=== PATIENT | male | born 1975 | race Caucasian/White ===

== ENCOUNTER → 2017-04-22 13:29 | Outpatient (POV) | payer BC, SELFPAY ==
[2017-04-22 15:22] LABS: Basophils # 0.1 K/mm3 (0-0.2); Basophils % 0.8 % (0.1-2.0); Eosinophils # 0.1 K/mm3 (0.0-0.4); Eosinophils % 1.6 % (0.1-12.0); Hematocrit 52.6 % (42.0-52.0); Hemoglobin 17.6 g/dL (14.1-18.0); Lymphocytes # 2.2 K/mm3 (0.7-4.5); Lymphocytes % 36.4 K/mm3 (10-50); Mean Corpuscular HGB Conc 33.5 g/dL (31.8-35.4); Mean Corpuscular Hemoglobin 30.4 pg (27.0-31.2); Mean Corpuscular Volume 90.6 fl (80-94); Mean Platelet Volume 7.1 fl (7.4-10.4); Monocytes # 0.3 K/mm3 (0.1-1.0); Monocytes % 5.1 % (1.7-9.3); Neutrophils # 3.4 K/mm3 (1.8-7.8); Neutrophils % 56.1 % (37.0-80.0); Platelet Count 258 K/mm3 (142-424); Red Blood Count 5.81 M/mm3 (4.60-6.20); Red Cell Distribution Width 12.5 % (11.5-17.5)
[2017-04-22 15:27] LABS: Alanine Aminotransferase 113 U/L (12-78); Albumin Level 4.6 gm/dL (3.4-5.0); Albumin/Globulin Ratio 1.2 (1.1-1.8); Alkaline Phosphatase 85 U/L (46-116); Anion Gap 13.7 mEq/L (5-15); Bilirubin,Total 0.4 mg/dL (0.2-1.0); Blood Urea Nitrogen 19 mg/dL (7-18); Calcium 9.1 mg/dL (8.5-10.1); Carbon Dioxide 27 mmol/L (21.0-32.0); Chloride 98 mmol/L (98-107); Creatinine,Serum 0.92 mg/dL (0.70-1.30); Estimated Glomerular Filt Rate 90 ml/min (>60); Ferritin 327 ng/mL (8-388); GFR (African American) 109 ML/MIN (>60); Globulin 3.8 gm/dl (1.3-3.2); Sodium 135 mmol/L (136-145); Total Protein,Serum 8.4 gm/dL (6.4-8.2)
[2017-04-22 15:29] LABS: Potassium 3.7 mmoL/L (3.5-5.1)
[2017-04-22 15:39] LABS: Aspartate Amino Transferase 41 U/L (15-37)
[2017-04-22 15:40] LABS: Glucose 150 mg/dL (74-106)
[2017-04-22 16:10] LABS: INR 0.93 (0.9-1.1)
[2017-04-24 06:16] LABS: Hep A Ab, IgM Negative (Negative); Hepatitis B Core Antibody IgM Negative (Negative); Hepatitis B Surface Antigen Negative (Negative)
[2017-04-24 07:19] LABS: Iron 99 ug/dL (38-169); UIBC 247 ug/dL (111-343)
[2017-04-24 08:24] LABS: Alpha-1-Antitrypsin 82 mg/dL (90-200); Ceruloplasmin 35.1 mg/dL (16.0-31.0); Immunoglobulin A, Qn 268 mg/dL (90-386); Immunoglobulin G, Qn 802 mg/dL (700-1600)
[2017-04-24 15:22] LABS: Angiotensin Converting Enzyme 19 U/L (14-82)
[2017-04-25 07:17] LABS: ALT (SGPT) P5P 97 IU/L (0-55); Alpha 2-Macroglobulins, Qn 339 mg/dL (110-276); Apolipoprotein A-1 140 mg/dL (101-178); Bilirubin, Total 0.2 mg/dL (0.0-1.2); Fibrosis Score 0.27 (0.00-0.21); Fibrosis Stage F0-F1 (.); GGT 50 IU/L (0-65); Haptoglobin 165 mg/dL (34-200); Necroinflammat Activity Grade A2-Moderate activity (.); Necroinflammat Activity Score 0.54 (0.00-0.17)
[2017-04-25 11:59] LABS: Actin (Smooth Muscle) Antibody 16 Units (0-19); Antinuclear Antibodies, IFA Negative (.); Hepatitis C Antibody <0.1 s/co ratio (0.0-0.9); Immunoglobulin M, Qn 84 mg/dL (20-172); Iron Saturation 29 % (15-55); Liver-Kidney Microsomal Ab <1.0 Units (0.0-20.0); Mitochondrial (M2) Antibody <20.0 Units (0.0-20.0)
[2017-04-26 19:22] LABS: Phenotype (PI) MZ (.)
== END ==
PROVIDERS: Family Provider Family Medicine; PCP Family Medicine; Visit Provider Nurse Practitioner Acute Care
DX: R94.5 Abnormal results of liver function studies (principal)
CPT/HCPCS: 36415; 80053; 80074; 82104; 82164; 82390; 82728; 82784; 83550; 85025; 85610; 86038; 86255; 86256; 86376

== ENCOUNTER → 2017-04-25 08:39 | Outpatient (CLI) | payer BC, SELFPAY ==
--- NOTE | 2017-04-25 08:43 | US_ITS ---
US abdomen limited: HISTORY: ITS.REASON: ABNORMAL LIVER FUNCTIONS ORDERING PHYSICIAN: Dora Lee PATIENT AGE: 42 years COMPARISON: None FINDINGS: PANCREAS: Unremarkable. No obvious mass or abnormal fluid collection. No ductal dilatation LIVER: There is increased echogenicity of the liver with decreased through transmission of sound consistent with fatty liver. There is appropriate direction of blood flow within the portal vein. No focal liver lesions demonstrated. Homogeneous echogenicity. No intrahepatic biliary ductal dilatation evident RIGHT KIDNEY: Unremarkable. Normal size and echogenicity. No hydronephrosis GALLBLADDER: No gallstones, gallbladder wall thickening, pericholecystic fluid, or biliary dilatation. Common bile duct is 3 mm IMPRESSION: Fatty liver. Otherwise negative right upper quadrant ultrasound
[2017-04-26 19:24] LABS: Deamidated Gliadin Abs, IgA 5 units (0-19); Deamidated Gliadin Abs, IgG 3 units (0-19); Tissue Transglutaminase IgA Ab <2 U/mL (0-3); Tissue Transglutaminase IgG Ab <2 U/mL (0-5)
[2017-04-26 19:25] LABS: Endomysial IgA Antibody Negative (Negative)
[2017-04-27 18:36] LABS: Reticulin IgA Antibody Negative titer (Neg:<1:2.5)
== END ==
PROVIDERS: Family Provider Family Medicine; PCP Family Medicine; Visit Provider Nurse Practitioner Acute Care
DX: R94.5 Abnormal results of liver function studies (principal)
CPT/HCPCS: 36415; 76705; 83516; 86255; 86256

== ENCOUNTER → 2017-05-27 13:01 | Outpatient (POV) | payer BC, SELFPAY | PROVIDERS: Visit Provider Nurse Practitioner Acute Care | DX: Z00.00 Encounter for general adult medical examination without abnormal findings (principal) ==

== ENCOUNTER → 2017-07-29 09:43 | Outpatient (POV) | payer BC, SELFPAY | PROVIDERS: Family Provider Family Medicine; Visit Provider Nurse Practitioner Acute Care | DX: Z00.00 Encounter for general adult medical examination without abnormal findings (principal) ==

== ENCOUNTER → 2019-02-26 16:35 | Outpatient (CLI) | payer BC, SELFPAY ==
--- NOTE | 2019-02-26 | XR_ITS ---
PROCEDURE: XR SHOULDER RT MIN 2V CLINICAL INDICATION: SHOULDER PAIN COMPARISON: No exams were available for comparison FINDINGS: No fracture, dislocation, lytic change, or blastic change evident. No significant degenerative change IMPRESSION: Unremarkable right shoulder. Dictated by: Bashir Corrigan MD 02/26/2019 17:47 Electronically signed by Bashir Corrigan MD in [place] 02/26/2019 17:47
== END ==
PROVIDERS: PCP Nurse Practitioner Family; Visit Provider Nurse Practitioner Family
DX: M25.511 Pain in right shoulder (principal)
CPT/HCPCS: 73030

== ENCOUNTER → 2020-04-18 09:58 | Outpatient (CLI) | payer BC, SELFPAY | PROVIDERS: PCP Family Medicine; Visit Provider Family Medicine | DX: R01.2 Other cardiac sounds (principal) | CPT/HCPCS: 93306 ==

== ENCOUNTER 2020-10-18 21:11 | Observation (INO) | payer BC, OTHER, SELFPAY ==
[2020-10-18] VITALS (7 sets, daily range): BP systolic 125–210; BP diastolic 74–111; PULSE 59–72; RESP 18–20; TEMP 36.7; O2SAT 93–99; BMI 31.9
--- NOTE | 2020-10-18 | ECG_ITS ---
APPROVED REPORT Exam: Resting ECG HR:55 bpm ECG Measurements Heart Rate 55 AXES TN 150 P 41 QRSd 98 QRS 11 QT 390 T 18 QTc 373 Conclusion Sinus bradycardia Otherwise normal ECG Electronically signed by : Maurice Ortiz MD 10/19/2020 17:43:30
--- NOTE | 2020-10-18 21:28 | PC.NURSE ---
walked back with patient, holding his arm. pt ambulates without difficulty. 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 house notified.
--- NOTE | 2020-10-18 21:41 | XR_ITS ---
PROCEDURE INFORMATION: Exam: XR Chest Exam date and time: 10/18/2020 9:41 PM Age: 45 years old Clinical indication: Left-sided; Patient HX: Left sided chest pain for 36 hrs, no SX, nonsmoker; Additional info: Cp TECHNIQUE: Imaging protocol: XR of the chest. Views: 2 views. COMPARISON: CR XR SHOULDER RT MIN 2V 02/26/2019 4:42 PM FINDINGS: Lungs: Atelectatic changes noted within both lung bases. Pleural spaces: There is no evidence of pneumothorax. There are no pleural effusions present. Heart/Mediastinum: Unremarkable. No cardiomegaly. Bones/joints: Unremarkable. IMPRESSION: Atelectatic changes noted within both lung bases.
[2020-10-18 21:46] LABS: Coronavirus 19, PCR Not Detected (NotDetected); Influenza A, PCR Not Detected (NotDetected); Influenza B, PCR Not Detected (NotDetected)
--- NOTE | 2020-10-18 21:48 | PC.NURSE ---
warehouse receiving clerk at bedside. pt continues to refuse to leave facility. attempts to remind policy to patient's and she stated she was fully aware of the policy but wouldn't be leaving.house continues to talk to . nitro placed to left anterior chest wall. pt received aspirin at home -243 mg-, 1 additional 81mg given. pt tolerated well
[2020-10-18 21:49] LABS: Basophils # 0.1 K/mm3 (0-0.2); Eosinophils # 0.1 K/mm3 (0.0-0.4); Hematocrit 47.8 % (42.0-52.0); Hemoglobin 15.9 g/dL (14.1-18.0); Lymphocytes # 2.7 K/mm3 (0.7-4.5); Lymphocytes % 42.3 % (10-50); Mean Corpuscular HGB Conc 33.2 g/dL (31.8-35.4); Mean Corpuscular Hemoglobin 30.7 pg (27.0-31.2); Mean Corpuscular Volume 92.4 fl (80-94); Mean Platelet Volume 7.9 fl (7.4-10.4); Monocytes # 0.3 K/mm3 (0.1-1.0); Monocytes % 4.6 % (1.7-9.3); Neutrophils # 3.2 K/mm3 (1.8-7.8); Neutrophils % 50.1 % (37.0-80.0); Platelet Count 244 K/mm3 (142-424); Red Blood Count 5.17 M/mm3 (4.60-6.20); Red Cell Distribution Width 13.3 % (11.5-17.5); White Blood Count 6.4 K/mm3 (4.8-10.8)
[2020-10-18 21:52] LABS: Chloride 102 mmol/L (98-107); Sodium 137 mmol/L (136-145)
[2020-10-18 21:55] LABS: Alanine Aminotransferase 85 U/L (12-78); Albumin Level 4.2 g/dl (3.5-5.0); Albumin/Globulin Ratio 1.4 (1.1-1.8); Alkaline Phosphatase 88 U/L (38-126); Amylase 62 U/L (30-110); Aspartate Amino Transferase 57 U/L (17-59); Bilirubin,Total 0.4 mg/dl (0.2-1.3); Blood Urea Nitrogen 14 mg/dl (9-20); Calcium 9.3 mg/dl (8.4-10.2); Carbon Dioxide 24 mmol/L (22.0-30.0); Creatinine Clearance Estimated 180 mL/min (50-200); Estimated Glomerular Filt Rate 122 ml/min (>60); GFR (African American) 148 ML/MIN (>60); Globulin 2.9 g/dL (1.3-3.2); Glucose 342 mg/dl (74-100); Lipase 106 U/L (23-300); Total Protein,Serum 7.1 g/dl (6.3-8.2)
[2020-10-18 22:02] LABS: C-Reactive Protein 1.7 mg/L (0-4)
--- NOTE | 2020-10-18 22:11 | HMH.EDCP ---
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 Diabetes mellitus complication status: with other specified complication Qualified Code(s): E11.69 - Type 2 diabetes mellitus with other specified complication HTN (hypertension) Qualifiers: Hypertension type: primary hypertension Qualified Code(s): I10 - Essential (primary) hypertension Disposition: Admitted as Observation Condition on Discharge: Good Referrals: Sushil Field MD [Primary Care Provider] - - Critical Care Critical Care Time: No Attestation: On 10/18/20, the high probability of a clinically significant, sudden or life threatening deterioration of the following system(s) required my full and direct attention, intervention and personal management. The time I documented below is in addition to time spent performing reported procedures but includes the following listed in this critical care notation. Medical Decision Making - Medical Records Medical records reviewed: Yes: I reviewed the patient's medical records. - Jesse Inquiry Pt receiving controlled substance: No Vital Signs: 10/18/20 21:12 10/18/20 21:31 10/18/20 22:01 Temperature 98.1 F Temperature Source Oral Pulse Rate 61 64 Pulse Rate [Right Brachial] 72 Respiratory Rate 19 18 18 Blood Pressure 200/111 H 185/93 H Blood Pressure [Right Arm] 210/105 H Blood Pressure Mean 131 123 Blood Pressure Mean [Right Arm] 140 Blood Pressure Source [Right Arm] Automatic Cuff Blood Pressure Position [Right Arm] Sitting 02 Sat by Pulse Oximetry 99 95 93 L Oxygen Delivery Method Room Air 10/18/20 22:15 Temperature Temperature Source Pulse Rate 66 Pulse Rate [Right Brachial] Respiratory Rate 18 Blood Pressure 159/95 H Blood Pressure [Right Arm] Blood Pressure Mean 116 Blood Pressure Mean [Right Arm] Blood Pressure Source [Right Arm] Blood Pressure Position [Right Arm] 02 Sat by Pulse Oximetry 96 Oxygen Delivery Method - Lab Data Lab results reviewed: Yes: I reviewed the patient's lab results. Lab Results 10/18/20 21:14: WBC 6.4, RBC 5.17, Hgb 15.9, Hct 47.8, MCV 92.4, MCH 30.7, MCHC 33.2, RDW 13.3, Plt Count 244, MPV 7.9, Neut % (Auto) 50.1, Lymph % (Auto) 42.3, [place] % (Auto) 4.6, Eos % (Auto) 2.0, Baso % (Auto) 1.0, Neut # (Auto) 3.2, Lymph # (Auto) 2.7, [place] # (Auto) 0.3, Eos # (Auto) 0.1, Baso # (Auto) 0.1, ESR 10 10/18/20 21:14: Sodium 137, Potassium 4.0, Chloride 102, Carbon Dioxide 24, Anion Gap 15.0, BUN 14, Creatinine 0.70, Estimated Creat Clear 180, Estimated GFR 122, Est GFR ( Amer) 148, Glucose 342 H, Calcium 9.3, Total Bilirubin 0.4, AST 57, ALT 85 H, Alkaline Phosphatase 88, C-Reactive Protein 1.7, Total Protein 7.1, Albumin 4.2, Globulin 2.9, Albumin/Globulin Ratio 1.4, Amylase 62, Lipase 106 10/18/20 21:14: Troponin I < 0.01 10/18/20 21:20: SARS-CoV-2 (PCR) Not detected, Influenza A Untype (PCR) Not detected, Influenza Type B (PCR) Not detected Result diagrams: 10/18/20 21:14 10/18/20 21:14 Orders (Tests/Meds): ED MEDICATIONS Discontinued Medications Generic Name Dose Route Start Last Admin Trade Name Zionq PRN Reason Stop Dose Admin Aspirin 81 mg 10/18/20 21:42 10/18/20 21:47 Aspirin 81mg Chewable Tablet PO 10/18/20 21:43 81 mg ONCE ONE Administration Nitroglycerin 1 gm 10/18/20 21:42 10/18/20 21:47 Nitroglycerin 1 Gm Ointment TD 10/18/20 21:43 1 gm ONCE ONE Administration ORDERS Category Date Time Status Troponin I Q3H Lab 10/19/20 01:30 Ordered Troponin I Q3H Lab 10/19/20 04:30 Ordered - Radiology Data #1 Image(s): Chest Image Reviewed: Yes I have reviewed radiologist's interpretation Preliminary Findings: Normal/NAD - ECG
--- NOTE | 2020-10-18 22:42 | PC.NURSE ---
called to check on troponin. waiting on results
[2020-10-18 22:45] LABS: Erythrocyte Sedimentation Rate 10 mm/hr (0-15)
--- NOTE | 2020-10-18 22:59 | PC.NURSE ---
Dr. Feild pagemarilee
--- NOTE | 2020-10-18 23:07 | PC.NURSE ---
on on phone with dr alvarez
[2020-10-18 23:17] LABS: Troponin I < 0.01 ng/ml (0.00-0.034)
[2020-10-19] VITALS (22 sets, daily range): BP systolic 109–149; BP diastolic 61–93; PULSE 42–76; RESP 15–20; TEMP 36.2–36.7; O2SAT 94–100; BMI 30.3; BMI 30.2
--- NOTE | 2020-10-19 | IR_ITS ---
APPROVED REPORT Patient Location: Inpatient [place] Cell Operator: KARINA Zhao RT (R) PROCEDURES Left heart catheterization Left ventriculogram Selective coronary angiogram INDICATION Unstable angina, Clinical history; young gentleman with strong family history of coronary artery disease including his father receiving bypass surgery at a young age. Patient is hypertensive diabetic and hyperlipidemic. He presented to the hospital with negative troponins however his chest pain was stuttering and was occurring the morning of evaluation. Because of the chest pain associated risk factors it was not felt patient be a good candidate for stress testing. Because of this he was offered cardiac catheterization Informed consent was obtained prior to the procedure. COMPLICATIONS None Estimated Blood Loss: Less than 10 mls TECHNIQUE One percent lidocaine used to anesthetize the right anterior aspect of the wrist. The right radial artery was accessed via the Seldinger technique. A 6 Bengali sheath was placed in the right radial artery. 2.5 mg of verapamil, 800 mcg of nitroglycerin, 1mg Lidocaine and 5000 U Heparin were given through the arterial sheath. The trap catheter was also used to perform left heart catheterization, left ventriculogram and selective coronary angiogram. At the end of the procedure the sheath was removed good hemostasis was achieved using Traclet band, patient was transferred to the postop holding area in stable condition. ANGIOGRAPHIC RESULTS The left main artery Normal The left anterior descending artery Normal The circumflex artery Normal The right coronary artery Dominant normal The APONTE ventriculogram reveals Normal 65% The left ventricular end-diastolic pressure 10 mmHg IMPRESSION Normal coronary arteries Normal ejection fraction Normal left ventricular and SI pressure PLAN 1. Evaluation of noncardiac chest pain 2. Risk factor modification Electronically signed by : Bernardo Davies MD 10/19/2020 13:10:03
[2020-10-19 00:48] LABS: Troponin I < 0.01 ng/ml (0.00-0.034)
--- NOTE | 2020-10-19 02:23 | PC.NURSE ---
patient up to floor via wheelchair.
[2020-10-19 05:11] LABS: Troponin I < 0.01 ng/ml (0.00-0.034)
[2020-10-19 07:09] LABS: POC Glucose,Bedside 193 (70-110)
--- NOTE | 2020-10-19 08:32 | HMH.CNCARD ---
<Misty Moody - Last Filed: 10/19/20 09:53> History of Present Illness Consult date: 10/19/20 Requesting physician: Sushil Field Consult reason: chest pain Chief complaint: chest pain History of present illness: This is a 45-year-old white gentleman who was admitted to the hospital with chest pain. He does have a history of hypertension, hyperlipidemia and type 2 diabetes. The patient states that his chest pain started on Saturday morning and woke him from sleep. He states that this is a constant pressure sensation in the substernal aspect of his chest and then he will have some sharp sensations in the left side of his chest as well intermittently. He states that the pain radiates to his left arm up into his neck and through his back. The patient states that he does get short of breath at times with the chest pain and pressure. He states that he has been profoundly fatigued and just feeling exhausted since the chest pain started. He also had some racing of the heart with the chest pain. He denies any nausea, vomiting or diaphoresis. The patient states that the chest pain persisted Saturday and he had a lot of trouble sleeping Saturday night because of the pain. He woke up Saturday still having the chest pain and all throughout the day yesterday as well. Because the pain seemed to intensify more he decided to come into the emergency department. His blood pressure was malignantly elevated at 210/105. The patient was given aspirin and nitro placed. He states that this did relieve the pressure somewhat but he is still having the chest pain and pressure this morning. He does report having a family history of ischemic heart disease. He states that his father had quadruple bypass surgery in his 50s. His mother has a history of strokes. He denies any edema. He denies any fever, chills, nausea, vomiting, diarrhea, PND or orthopnea. [facility] History I have reviewed the patient's past medical history: Yes Medical History: Reports:: Cancer (skin ca. removed), Diabetes Mellitus Type 2, Hyperlipidemia, Hypertension Denies:: MRSA *Have you ever received a pneumonia vaccine?: No *Have you received a flu vaccine this season?: Yes Laterality Cases: Bilateral: Tonsillectomy Other Surgeries: Yes: Colonoscopy, Skin Cancer Excision - *Social History Smoking Status: Never smoker Alcohol Intake: current Alcohol Intake Frequency:: holidays/special occasions only *Occupational Status:: retired Housing: house Household Members: family *Travel in the last 8 weeks: None Family Hx:: Cancer, Diabetes, Heart Attack, Stroke Meds Home Medications Medication Instructions Recorded Confirmed Type Atorvastatin Calcium [Lipitor 10mg 10 mg PO DAILY 10/18/20 10/19/20 History Tab] Metformin HCl [Metformin 1000mg 1,000 mg PO DAILY 10/18/20 10/18/20 History Tablets] Omeprazole [Omeprazole 20mg 20 mg PO DAILY 10/18/20 10/18/20 History Capsule] lisinopriL [Lisinopril] 10 mg PO DAILYDM 10/18/20 10/18/20 History glipiZIDE [Glipizide] 10 mg PO DAILY 10/19/20 10/19/20 History Allergies Allergy/AdvReac Type Severity Reaction Status Date / Time No Known Allergies Allergy Verified 10/18/20 21:41 Exam Vital signs and Labs for Last 24 Hours: Temp Pulse Resp BP Pulse Ox 97.7 F 55 L 18 114/61 96 10/19/20 07:46 10/19/20 07:46 10/19/20 07:46 10/19/20 07:46 10/19/20 07:46 Laboratory Results - last 24 hr 10/18/20 21:14: WBC 6.4, RBC 5.17, Hgb 15.9, Hct 47.8, MCV 92.4, MCH 30.7, MCHC 33.2, RDW 13.3, Plt Count 244, MPV 7.9, Neut % (Auto) 50.1, Lymph % (Auto) 42.3, [place] % (Auto) 4.6, Eos % (Auto) 2.0, Baso % (Auto) 1.0, Neut # (Auto) 3.2, Lymph # (Auto) 2.7, [place] # (Auto) 0.3, Eos # (Auto) 0.1, Baso # (Auto) 0.1, ESR 10 10/18/20 21:14: Sodium 137, Potassium 4.0, Chloride 102, Carbon Dioxide 24, Anion Gap 15.0, BUN 14, Creatinine 0.70, Estimated Creat Clear 180, Estimated GFR 122, Est GFR ( Amer) 148, Glucose 342 H, Calcium 9.3,
--- NOTE | 2020-10-19 09:18 | HMH.HP ---
*Admission Date: 10/18/20 <Leann Caldera 10/19/20 09:31> *Chief complaint: Chest pain <Leann Caldera 10/19/20 09:31> *History of present illness: Mr. Hussein is a 45-year-old male with a history of hypertension and type 2 diabetes mellitus who presented to [facility] after experiencing chest pain for the past 48 hours. He states the pain started on 10/17/2020 with a constant pressure and sometimes intermittent sharp pains radiating up to his neck and down his left arm and sometimes through to his back. At one point he was short of breath. He denies any nausea and vomiting. He did have some palpitations at one point. He denies leg edema. 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 Also he states that he cannot remember if he took his blood pressure medicine yesterday a.m. Upon arrival to the emergency room his blood pressure was quite High at 210/105 , 200/111, and 185/93. He was given an aspirin and Nitropaste was placed on his chest. This did relieve some of this discomfort although he still has some chest pressure this a.m. He was then admitted with a cardiology consult. Patient continues to have some chest pressure-like discomfort this morning. Blood pressure is much improved. He denies shortness of breath. He had very minimal sleep during the night. He is n.p.o. for the cardiology consult this morning. Troponin I's have been normal x3. <Leann Caldera 10/19/20 09:31> [facility] History Medical History: Reports:: Cancer (skin ca. removed), Diabetes Mellitus Type 2, Hyperlipidemia, Hypertension Denies:: MRSA <CalderaLeann 10/19/20 09:31> *Have you ever received a pneumonia vaccine?: No <Leann Caldera 10/19/20 09:31> *Have you received a flu vaccine this season?: Yes <Leann Caldera 10/19/20 09:31> Laterality Cases: Bilateral: Tonsillectomy <Leann Caldera 10/19/20 09:31> Other Surgeries: Yes: Colonoscopy, Skin Cancer Excision <Leann Caldera 10/19/20 09:31> - *Social History Smoking Status: Never smoker <Leann Caldera 10/19/20 09:31> Alcohol Intake: current <Leann Caldera 10/19/20 09:31> Alcohol Intake Frequency:: holidays/special occasions only <Leann Caldera 10/19/20 09:31> Substance Use Type: denies use <Leann Caldera 10/19/20 09:31> *Occupational Status:: retired <Leann Caldera 10/19/20 09:31> Housing: house <Leann Caldera 10/19/20 09:31> Household Members: family <Leann Caldera 10/19/20 09:31> *Travel in the last 8 weeks: None <Leann Caldera 10/19/20 09:31> Family Hx:: Cancer, Diabetes, Heart Attack, Stroke <Leann Caldera 10/19/20 09:31> Review of Systems - Constitutional Denies fever(s) <Leann Caldera 10/19/20 09:31> - Eyes Denies change in vision <Leann Caldera 10/19/20 09:31> - ENT Denies abnormal hearing, Denies ear pain, Denies nasal congestion, Denies sore throat <Leann Caldera 10/19/20 09:31> - *Cardiovascular Reports chest pain, Reports shortness of breath, Denies generalized swelling, Denies irregular heart rhythm, Denies leg swelling, Denies fast heart rate <Leann Caldera 10/19/20 09:31> - *Respiratory Reports shortness of breath, Denies chest congestion, Denies cough <Leann Caldera 10/19/20 09:31> - *Gastrointestinal Denies abdominal pain, Denies change in stools, Denies heartburn, Denies vomiting blood, Denies nausea, Denies vomiting <Leann Caldera 10/19/20 09:31> - *Genitourinary Denies difficulty urinating <CalderaLeann 10/19/20 09:31> - *Musculoskeletal Denies abnormal walking <CalderaLeann 10/19/20 09:31> - *Neurologic Denies abnormal walking, Denies seizure-like activity <CalderaLeann 10/19/20 09:31> Meds Home Medications Medication Instructions Recorded Confirmed Type Atorvastatin Calcium [Lipitor 10mg 10 mg PO DAILY 10/18/20 10/19/20 History Tab] Metformin HCl [Metformin 1000mg 1,000 mg PO DAILY 10/18/20 10/18/20 History Tablets] Omepr
--- NOTE | 2020-10-19 14:52 | HMH.PHAVTE ---
[facility] Pharmacy VTE Monitoring - Patient Demographics Admission date: 10/18/20 Report Date: 10/19/20 Time: 14:53 Allergies/Adverse Reactions: Patient Allergies No Known Allergies Allergy (Verified 10/18/20 21:41) Height: 1.73 m Weight: 90 kg Patient Problems: Current Active Problems Chest pain (Acute) Diabetes mellitus (Chronic) HTN (hypertension) (Chronic) Obesity (BMI 30-39.9) (Chronic) Hyperlipidemia (Chronic) Unstable angina (Acute) Family history of ischemic heart disease (Chronic) - VTE Risk Labs: VTE Related Lab Results Hgb 15.9 g/dL (14.1-18.0) 10/18/20 21:14 Hct 47.8 % (42.0-52.0) 10/18/20 21:14 Plt Count 244 K/mm3 (142-424) 10/18/20 21:14 BUN 14 mg/dl (9-20) 10/18/20 21:14 Creatinine 0.70 mg/dl (0.66-1.25) 10/18/20 21:14 Estimated Creat Clear 180 mL/min (50-200) 10/18/20 21:14 Was VTE Risk Assessment Performed: Yes VTE Score: 2 VTE Risk Level: Very Low Risk - Prophylaxis VTE Prophylaxis Ordered?: Yes Types of VTE Prophylaxis: TEDS Knee High Location of Applied Device: Bilateral Lower Extremeties
[2020-10-19 16:34] LABS: POC Glucose,Bedside 233 (70-110)
--- NOTE | 2020-10-20 14:32 | HMH.DCSUM ---
General - General Admission date:: 10/19/20 Discharge date: 10/19/20 HPI HPI: Mr. Hussein is a 45-year-old male with a history of hypertension and type 2 diabetes mellitus who presented to [facility] after experiencing chest pain for the past 48 hours. He states the pain started on 10/17/2020 with a constant pressure and sometimes intermittent sharp pains radiating up to his neck and down his left arm and sometimes through to his back. At one point he was short of breath. He denies any nausea and vomiting. He did have some palpitations at one point. He denies leg edema. 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 Also he states that he cannot remember if he took his blood pressure medicine yesterday a.m. Upon arrival to the emergency room his blood pressure was quite High at 210/105 , 200/111, and 185/93. He was given an aspirin and Nitropaste was placed on his chest. This did relieve some of this discomfort although he still has some chest pressure this a.m. He was then admitted with a cardiology consult. Patient continues to have some chest pressure-like discomfort this morning. Blood pressure is much improved. He denies shortness of breath. He had very minimal sleep during the night. He is n.p.o. for the cardiology consult this morning. Troponin I's have been normal x3. Hospital Course Hospital Course: Patient was admitted for cardiac consultation. He had a cardiac catheterization on 10/19/2020. Left heart cath revealed normal coronary arteries, normal pressures, and normal ejection fraction. Patient remained stable during his brief stay. BP was satisfactory and stable. Thus patient was discharged home in the p.m. of 10/19/2020 in stable and satisfactory condition. He was to follow-up with Dr. Field on 10/27/2020. Medications as per medication reconciliation sheet. Objective Vital signs: Temp Pulse Resp BP Pulse Ox 97.7 F 61 16 140/79 97 10/19/20 07:46 10/19/20 18:45 10/19/20 18:45 10/19/20 18:45 10/19/20 18:45 Narrative: Exam Vital signs and Labs for Last 24 Hours: Temp Pulse Resp BP Pulse Ox 97.7 F 55 L 18 114/61 96 10/19/20 07:46 10/19/20 08:00 10/19/20 07:46 10/19/20 07:46 10/19/20 08:00 Laboratory Results - last 24 hr 10/18/20 21:14: WBC 6.4, RBC 5.17, Hgb 15.9, Hct 47.8, MCV 92.4, MCH 30.7, MCHC 33.2, RDW 13.3, Plt Count 244, MPV 7.9, Neut % (Auto) 50.1, Lymph % (Auto) 42.3, [place] % (Auto) 4.6, Eos % (Auto) 2.0, Baso % (Auto) 1.0, Neut # (Auto) 3.2, Lymph # (Auto) 2.7, [place] # (Auto) 0.3, Eos # (Auto) 0.1, Baso # (Auto) 0.1, ESR 10 10/18/20 21:14: Sodium 137, Potassium 4.0, Chloride 102, Carbon Dioxide 24, Anion Gap 15.0, BUN 14, Creatinine 0.70, Estimated Creat Clear 180, Estimated GFR 122, Est GFR ( Amer) 148, Glucose 342 H, Calcium 9.3, Total Bilirubin 0.4, AST 57, ALT 85 H, Alkaline Phosphatase 88, C-Reactive Protein 1.7, Total Protein 7.1, Albumin 4.2, Globulin 2.9, Albumin/Globulin Ratio 1.4, Amylase 62, Lipase 106 10/18/20 21:14: Troponin I < 0.01 10/18/20 21:20: SARS-CoV-2 (PCR) Not detected, Influenza A Untype (PCR) Not detected, Influenza Type B (PCR) Not detected 10/19/20 00:10: Troponin I < 0.01 10/19/20 04:15: Troponin I < 0.01 10/19/20 07:00: POC Glucose 193 H <Sushil Field - 10/19/20 13:22> Temp Pulse Resp BP Pulse Ox 97.7 F 55 L 18 114/61 96 10/19/20 07:46 10/19/20 07:46 10/19/20 07:46 10/19/20 07:46 10/19/20 07:46 Laboratory Results - last 24 hr 10/18/20 21:14: WBC 6.4, RBC 5.17, Hgb 15.9, Hct 47.8, MCV 92.4, MCH 30.7, MCHC 33.2, RDW 13.3, Plt Count 244, MPV 7.9, Neut % (Auto) 50.1, Lymph % (Auto) 42.3, [place] % (Auto) 4.6, Eos % (Auto) 2.0, Baso % (Auto) 1.0, Neut # (Auto) 3.2, Lymph # (Auto) 2.7, [place] # (Auto) 0.3, Eos # (Auto) 0.1, Baso # (Auto) 0.1, ESR 10 10/18/20 21:14: Sodium 137, Potassium 4.0, Chloride 102, Carbon Dioxide 24, Anion Gap 15.0, BUN 14, Creatinine 0.70,
== END 2020-10-19 18:55 | disposition home or self-care (01) ==
LOC: ER 21:35 → 2ND 23:28
PROVIDERS: Internal Medicine; Admitting Provider Family Medicine; Emergency Provider Emergency Medicine; PCP Family Medicine; Visit Provider Family Medicine
DX: I25.110 Atherosclerotic heart disease of native coronary artery with unstable angina pectoris (principal); E11.9 Type 2 diabetes mellitus without complications; I10 Essential (primary) hypertension; E78.5 Hyperlipidemia, unspecified; Z82.49 Family history of ischemic heart disease and other diseases of the circulatory system; Z79.84 Long term (current) use of oral hypoglycemic drugs; Z79.899 Other long term (current) drug therapy; Z20.822 Contact with and (suspected) exposure to COVID-19
CPT/HCPCS: 71046; 80053; 82150; 82962; 83690; 84484; 85025; 85651; 86140; 93005; 93458; 99152; 99283; C1725; C1769; G0378; J1644; Q9967; U0003